=== PATIENT | female | born 1980 | race Caucasian/White ===

== ENCOUNTER 2016-06-13 10:12 | Observation (INO) | payer OTHER ==
[~2016-06-13] VITALS: Ht 160 cm; Wt 87.1 kg
[2016-06-13] MEDS ORDERED: PREN-134 PO (10:28)
[2016-06-13] MEDS ORDERED: FERR-89 PO (10:28)
[2016-06-13] MEDS ORDERED: DSSL PO (10:28)
[2016-06-13 10:30] VITALS: BP 106/62
== END 2016-06-13 10:53 | disposition home or self-care (01) ==
LOC: 4S 10:12 → UNDOADMOB 10:53 → 4S 10:53
PROVIDERS: ADMIT Obstetrics & Gynecology; ATTEND Obstetrics & Gynecology
DX: Z34.93 Encounter for supervision of normal pregnancy, unspecified, third trimester (principal); Z3A.34 34 weeks gestation of pregnancy
CPT/HCPCS: 59025; G0378

== ENCOUNTER 2016-06-16 18:27 | Observation (INO) | payer OTHER ==
[~2016-06-16 18:27] MED LIST: DSSL PO; FERR-89 PO; PREN-134 PO
[2016-06-16] MEDS ORDERED: DSS100 PO (18:32)
[2016-06-16 19:41] VITALS: BP 102/58
== END 2016-06-16 19:20 | disposition home or self-care (01) ==
LOC: 4S 18:27
PROVIDERS: ADMIT Obstetrics & Gynecology; ATTEND Obstetrics & Gynecology
DX: Z34.93 Encounter for supervision of normal pregnancy, unspecified, third trimester (principal); Z3A.34 34 weeks gestation of pregnancy
CPT/HCPCS: 59025; G0378

== ENCOUNTER 2016-06-20 09:05 | Observation (INO) | payer OTHER ==
[~2016-06-20] VITALS: Ht 160 cm; Wt 88.5 kg
[~2016-06-20 09:05] MED LIST changes: +DSS100 PO
[2016-06-20] MEDS ORDERED: NIFEdipine 10 MG CAPSULE PO ONE (10:30)
[2016-06-20 12:16] VITALS: BP 104/68
== END 2016-06-20 12:50 | disposition home or self-care (01) ==
LOC: 4S 09:05
PROVIDERS: ADMIT Obstetrics & Gynecology; ATTEND Obstetrics & Gynecology
DX: O62.9 Abnormality of forces of labor, unspecified (principal); Z3A.35 35 weeks gestation of pregnancy
CPT/HCPCS: 59025; G0378

== ENCOUNTER 2016-06-23 19:00 | Observation (INO) | payer OTHER ==
[~2016-06-23] VITALS: Ht 160 cm; Wt 89.8 kg
[~2016-06-23 19:00] MED LIST changes: -DSSL PO
[2016-06-23 20:18] VITALS: BP 106/64
== END 2016-06-23 19:45 | disposition home or self-care (01) ==
LOC: 4S 19:00
PROVIDERS: ADMIT Obstetrics & Gynecology; ATTEND Obstetrics & Gynecology
DX: Z34.93 Encounter for supervision of normal pregnancy, unspecified, third trimester (principal); Z3A.35 35 weeks gestation of pregnancy
CPT/HCPCS: 59025; G0378

== ENCOUNTER 2016-06-27 09:00 | Observation (INO) | payer OTHER ==
[~2016-06-27] VITALS: Ht 160 cm; Wt 88.9 kg
[~2016-06-27 09:00] MED LIST changes: -FERR-89 PO; +FERS325 PO
[2016-06-27 09:10] VITALS: BP 109/58
[2016-06-27] MEDS ORDERED: INFLUENZA VIRUS VACCINE QVS 2016-17 (3YR+)/PF 60 MCG/0.5 ML SYRINGE IM ONE (09:30)
== END 2016-06-27 09:40 | disposition home or self-care (01) ==
LOC: 4S 09:00
PROVIDERS: ADMIT Obstetrics & Gynecology; ATTEND Obstetrics & Gynecology
DX: O09.523 Supervision of elderly multigravida, third trimester (principal); Z3A.35 35 weeks gestation of pregnancy
CPT/HCPCS: 59025; 90471; G0378

== ENCOUNTER 2016-06-30 13:10 | Observation (INO) | payer OTHER ==
[~2016-06-30] VITALS: Ht 160 cm; Wt 89.8 kg
[~2016-06-30 13:10] MED LIST changes: +FERR-89 PO; -FERS325 PO
[2016-06-30 13:41] VITALS: BP 107/58
== END 2016-06-30 14:00 | disposition home or self-care (01) ==
LOC: 4S 13:10
PROVIDERS: ADMIT Obstetrics & Gynecology; ATTEND Obstetrics & Gynecology
DX: Z34.93 Encounter for supervision of normal pregnancy, unspecified, third trimester (principal); Z3A.36 36 weeks gestation of pregnancy
CPT/HCPCS: 59025; G0378

== ENCOUNTER 2016-06-30 15:26 | Observation (INO) | payer OTHER ==
[~2016-06-30] VITALS: Ht 160 cm; Wt 91.2 kg
== END 2016-07-03 09:45 | disposition home or self-care (01) ==
LOC: 4S 07-03 09:10
PROVIDERS: ADMIT Obstetrics & Gynecology; ATTEND Obstetrics & Gynecology
DX: Z34.93 Encounter for supervision of normal pregnancy, unspecified, third trimester (principal); Z3A.36 36 weeks gestation of pregnancy
CPT/HCPCS: 59025; G0378

== ENCOUNTER 2016-07-07 09:00 | Observation (INO) | payer OTHER ==
[~2016-07-07] VITALS: Ht 160 cm; Wt 90.7 kg
[2016-07-07 10:00] VITALS: BP 113/67
== END 2016-07-07 09:40 | disposition home or self-care (01) ==
LOC: 4S 09:00
PROVIDERS: ADMIT Obstetrics & Gynecology; ATTEND Obstetrics & Gynecology
DX: Z34.93 Encounter for supervision of normal pregnancy, unspecified, third trimester (principal); Z3A.37 37 weeks gestation of pregnancy
CPT/HCPCS: 59025; G0378

== ENCOUNTER 2016-07-10 17:16 | Observation (INO) | payer OTHER ==
[~2016-07-10] VITALS: Ht 160 cm; Wt 92.1 kg
[2016-07-10 20:11] VITALS: BP 109/66
== END 2016-07-10 20:10 | disposition home or self-care (01) ==
LOC: 4S 17:16
PROVIDERS: ADMIT Obstetrics & Gynecology; ATTEND Obstetrics & Gynecology
DX: O62.9 Abnormality of forces of labor, unspecified (principal); Z3A.37 37 weeks gestation of pregnancy
CPT/HCPCS: 59025; G0378

== ENCOUNTER 2016-07-10 20:50 | Observation (INO) | payer OTHER ==
[~2016-07-10] VITALS: Ht 160 cm; Wt 91.6 kg
[2016-07-13 09:28] VITALS: BP 104/59
== END 2016-07-13 09:15 | disposition home or self-care (01) ==
LOC: 4S 07-13 08:10
PROVIDERS: ADMIT Obstetrics & Gynecology; ATTEND Obstetrics & Gynecology
DX: Z34.93 Encounter for supervision of normal pregnancy, unspecified, third trimester (principal); Z3A.38 38 weeks gestation of pregnancy
CPT/HCPCS: 59025; G0378

== ENCOUNTER 2016-07-17 08:45 | Observation (INO) | payer OTHER ==
[~2016-07-17] VITALS: Ht 160 cm; Wt 92.1 kg
[2016-07-17 08:59] VITALS: BP 107/63
== END 2016-07-17 09:30 | disposition home or self-care (01) ==
LOC: 4S 08:45
PROVIDERS: ADMIT Obstetrics & Gynecology; ATTEND Obstetrics & Gynecology
DX: O99.013 Anemia complicating pregnancy, third trimester (principal); Z3A.38 38 weeks gestation of pregnancy
CPT/HCPCS: 59025; G0378

== ENCOUNTER 2016-07-21 08:57 | Observation (INO) | payer OTHER ==
[~2016-07-21] VITALS: Ht 160 cm; Wt 93.4 kg
== END 2016-07-21 09:50 | disposition home or self-care (01) ==
LOC: 4S 08:57
PROVIDERS: ADMIT Obstetrics & Gynecology; ATTEND Obstetrics & Gynecology
DX: Z34.93 Encounter for supervision of normal pregnancy, unspecified, third trimester (principal); Z3A.39 39 weeks gestation of pregnancy
CPT/HCPCS: 59025; G0378

== ENCOUNTER 2016-07-23 08:59 | Observation (INO) | payer OTHER ==
[~2016-07-23] VITALS: Ht 160 cm; Wt 92.5 kg
[2016-07-23 09:23] VITALS: BP 107/67
== END 2016-07-23 09:40 | disposition home or self-care (01) ==
LOC: 4S 08:59
PROVIDERS: ADMIT Obstetrics & Gynecology; ATTEND Obstetrics & Gynecology
DX: O09.523 Supervision of elderly multigravida, third trimester (principal); Z3A.39 39 weeks gestation of pregnancy
CPT/HCPCS: 59025; G0378

== ENCOUNTER 2016-07-26 19:35 | Inpatient (IN) | payer OTHER ==
[~2016-07-26] VITALS: Ht 160 cm; Wt 93.4 kg
[~2016-07-26 19:35] MED LIST changes: -FERR-89 PO; +FERS325 PO
[2016-07-26] MEDS ORDERED: RINGERS SOLUTION,LACTATED 1,000 ML IV PRN (20:20)
[2016-07-26] MEDS ORDERED: OXYTOCIN 30 UNITS/LACT RINGERS 500 ML IV ONE (20:20)
[2016-07-26] MEDS ORDERED: CITRIC ACID/SODIUM CITRATE 30 ML SOLUTION UDCUP PO PRN (20:30)
[2016-07-26] MEDS ORDERED: METOCLOPRAMIDE HCL 5 MG/ML 2 ML VIAL IVP PRN (20:30)
[2016-07-26 20:48] VITALS: BP 108/68
[2016-07-26 21:07] LABS: BASOPHILS % (AUTO) 0.3 % (0.0-2.0); EOSINOPHILS % (AUTO) 0.8 % (1.0-6.0); HEMATOCRIT 34.9 % (36-46); LYMPHOCYTES # (AUTO) 2.1 K/uL (1.0-4.8); LYMPHOCYTES % (AUTO) 20.2 % (22.0-44.0); MEAN CORPUSCULAR HEMOGLOBIN 34.5 pg (26.0-34.0); MEAN CORPUSCULAR HGB CONC 34.4 G/dL (31.0-37.0); MEAN CORPUSCULAR VOLUME 100 fL (80-100); MONOCYTES # (AUTO) 0.5 K/uL (0.1-1.0); MONOCYTES % (AUTO) 4.8 % (2.0-9.0); NEUTROPHILS # (AUTO) 7.6 K/uL (1.8-7.7); NEUTROPHILS % (AUTO) 73.9 % (40.0-70.0); RED BLOOD CELL COUNT(AUTO) 3.49 MIL/uL (4.00-5.20); RED CELL DISTRIBUTION WIDTH 12.7 % (11.5-14.5); WHITE BLOOD COUNT (AUTO) 10.3 K/uL (4.5-11.0)
[2016-07-26] MEDS: RINGERS SOLUTION,LACTATED 1,000 ML IV SCH ×2 (21:07→22:57)
[2016-07-26 21:33] LABS: RBC MORPHOLOGY COMMENT ABNORMAL RBC MORPH
[2016-07-26] MEDS ORDERED: OXYTOCIN 30 UNITS/LACT RINGERS 500 ML IV PRN (22:00)
[2016-07-26] MEDS: FentaNYL CITRATE-PF 100 MCG/2 ML VIAL IVP PRN ×2 (23:10→23:16)
[2016-07-27] MEDS: RINGERS SOLUTION,LACTATED 1,000 ML IV SCH ×4 (00:33→11:48)
[2016-07-27] MEDS ORDERED: FentaNYL/BUPIV 0.125%/NS/PF 200 ML ED ONE (00:42)
[2016-07-27] MEDS ORDERED: BUPIVACAINE HCL/PF 0.25% 30 ML VIAL ONE (00:45)
[2016-07-27] MEDS ORDERED: FentaNYL/BUPIV 0.125%/NS/PF 200 ML ED PRN (01:33)
[2016-07-27] MEDS ORDERED: ONDANSETRON HCL 4 MG/2 ML VIAL IVP PRN ×3 (01:45→16:00)
[2016-07-27] MEDS ORDERED: DiphenhydrAMINE HCL 50 MG/ML VIAL IVP PRN ×3 (01:45→16:00)
[2016-07-27] MEDS ORDERED: LIDOCAINE HCL/PF 2% 5 ML VIAL ONE ×2 (06:02→14:12)
[2016-07-27] MEDS ORDERED: OXYTOCIN 20 UNITS in RINGERS SOLUTION,LACTATED 1,000 ML IV ONE (09:00)
[2016-07-27] MEDS ORDERED: EPHEDrine SULFATE 50 MG/ML VIAL IM ONE (12:00)
[2016-07-27] MEDS ORDERED: OXYTOCIN 10 UNITS/ML VIAL IM ONE (12:00)
[2016-07-27] MEDS ORDERED: KETOROLAC TROMETHAMINE 60 MG/2 ML VIAL IM ONE (12:00)
[2016-07-27] MEDS ORDERED: DEXAMETHASONE SOD PHOS 4 MG/ML VIAL IVP ONE (12:00)
[2016-07-27] MEDS: FentaNYL CITRATE-PF 100 MCG/2 ML VIAL IVP PRN ×2 (12:57→13:07)
[2016-07-27] MEDS ORDERED: BUPIVACAINE HCL 0.125%/NS/PF 100 ML ED ONE (14:11)
[2016-07-27] MEDS ORDERED: MORPHINE SULFATE/PF 0.5 MG/ML 10 ML AMP ONE (14:46)
[2016-07-27] MEDS ORDERED: MIDAZOLAM HCL 2 MG/2 ML VIAL ONE (14:46)
[2016-07-27] MEDS ORDERED: MORPHINE SULFATE 4 MG/ML SYRINGE IVP PRN (16:00)
[2016-07-27] MEDS ORDERED: MORPHINE SULFATE 2 MG/ML SYRINGE IVP PRN (16:00)
[2016-07-27] MEDS ORDERED: FentaNYL CITRATE-PF 100 MCG/2 ML VIAL IVP PRN ×2 (16:00)
[2016-07-27] MEDS ORDERED: MEASLES/MUMPS/RUBELLA VACCINE, LIVE 0.5 ML/VIAL SQ ONE (19:45)
[2016-07-27] MEDS ORDERED: LANOLIN 7 GM OINTMENT TP PRN (19:45)
[2016-07-27] MEDS ORDERED: OXYGEN THERAPY IH SCH ×3 (20:00)
[2016-07-27] MEDS: NALBUPHINE HCL 10 MG/ML VIAL IVP SCH (20:40)
[2016-07-27] MEDS: KETOROLAC TROMETHAMINE 30 MG/ML VIAL IVP SCH (22:13)
[2016-07-28] MEDS: RINGERS SOLUTION,LACTATED 1,000 ML IV SCH ×3 (01:17→18:33)
[2016-07-28] MEDS: NALBUPHINE HCL 10 MG/ML VIAL IVP SCH ×2 (02:29→09:17)
[2016-07-28] MEDS: KETOROLAC TROMETHAMINE 30 MG/ML VIAL IVP SCH ×2 (04:21→09:51)
[2016-07-28 06:10] LABS: BASOPHILS # (AUTO) 0.04 K/uL (0.00-0.20); BASOPHILS % (AUTO) 0.3 % (0.0-2.0); EOSINOPHILS # (AUTO) 0.08 K/uL (0.00-0.70); EOSINOPHILS % (AUTO) 0.51 % (1.0-6.0); HEMATOCRIT 25.8 % (36-46); HEMOGLOBIN 8.9 g/dL (12.0-16.0); LYMPHOCYTES # (AUTO) 1.6 K/uL (1.0-4.8); LYMPHOCYTES % (AUTO) 10.3 % (22.0-44.0); MEAN CORPUSCULAR HEMOGLOBIN 34.4 pg (26.0-34.0); MEAN CORPUSCULAR HGB CONC 34.3 G/dL (31.0-37.0); MEAN CORPUSCULAR VOLUME 100 fL (80-100); MONOCYTES # (AUTO) 0.4 K/uL (0.1-1.0); MONOCYTES % (AUTO) 2.4 % (2.0-9.0); NEUTROPHILS # (AUTO) 13.1 K/uL (1.8-7.7); RED BLOOD CELL COUNT(AUTO) 2.57 MIL/uL (4.00-5.20); RED CELL DISTRIBUTION WIDTH 13.2 % (11.5-14.5); WHITE BLOOD COUNT (AUTO) 15.2 K/uL (4.5-11.0)
[2016-07-28 06:47] LABS: NEUTROPHILS % (AUTO) 86.5 % (40.0-70.0)
[2016-07-28] MEDS: MAGNESIUM HYDROXIDE SUSPENSION 30 ML UDCUP PO PRN ×2 (10:36→21:22)
[2016-07-28] MEDS ORDERED: ACETAMINOPHEN/CODEINE 300-30 MG TABLET PO PRN ×4 (16:07→19:45)
[2016-07-28] MEDS: IBUPROFEN 800 MG TABLET PO SCH ×2 (18:06→23:42)
[2016-07-28] MEDS ORDERED: IBUPROFEN 800 MG TABLET PO PRN (19:45)
[2016-07-29] MEDS: IBUPROFEN 800 MG TABLET PO SCH ×4 (05:34→23:46)
[2016-07-29] MEDS: MAGNESIUM HYDROXIDE SUSPENSION 30 ML UDCUP PO PRN ×2 (09:32→22:17)
[2016-07-30] MEDS: IBUPROFEN 800 MG TABLET PO SCH ×2 (05:53→12:45)
[2016-07-30] MEDS ORDERED: IBUP-1547 PO (11:55)
[2016-07-30] MEDS ORDERED: TYL3B PO (12:00)
[2016-07-30] MEDS ORDERED: ACET1TAB12 PO (12:00)
== END 2016-07-30 13:35 | disposition home or self-care (01) | DRG 766 ==
LOC: 4S 19:35 → OBSVTOIN 19:35 → 4S 07-27 15:25
PROVIDERS: ADMIT Obstetrics & Gynecology; ATTEND Obstetrics & Gynecology
PROC: 10D00Z1 Extraction of Products of Conception, Low, Open Approach (ICD-10-PCS; principal; 2016-07-27)
DX: O69.81X0 Labor and delivery complicated by cord around neck, without compression, not applicable or unspecified (principal); O77.0 Labor and delivery complicated by meconium in amniotic fluid; O62.0 Primary inadequate contractions; O32.4XX0 Maternal care for high head at term, not applicable or unspecified; O42.92 Full-term premature rupture of membranes, unspecified as to length of time between rupture and onset of labor; O75.89 Other specified complications of labor and delivery; E66.3 Overweight; O09.513 Supervision of elderly primigravida, third trimester; Z68.36 Body mass index [BMI] 36.0-36.9, adult; Z3A.40 40 weeks gestation of pregnancy; Z37.0 Single live birth
CPT/HCPCS: 86850; 86900; 86901; J0690; J1100; J1885; J2250; J2274; J2300; J2590; J2765; J3010; J3490; J7120